=== PATIENT | male | born 1940 | race Hispanic/Latino ===

== ENCOUNTER 2024-01-30 10:54 | Emergency (ER) | payer OTHER ==
[~2024-01-30] VITALS: Ht 154.9 cm; Wt 59.0 kg
[2024-01-30] MEDS ORDERED: LOSARTAN POTASS50 MG PO (11:11)
[2024-01-30] MEDS ORDERED: ALLOPURINOL100 MG PO (11:11)
[2024-01-30] MEDS ORDERED: FINASTERIDE5 MG PO (11:18)
[2024-01-30] MEDS ORDERED: ZYLOPRIM100 MG PO (11:18)
[2024-01-30] MEDS ORDERED: ACETAMINOPHEN500 MG (11:18)
[2024-01-30] MEDS ORDERED: PROBIOTIC1 EAC1 (11:18)
[2024-01-30] MEDS ORDERED: ASPIRIN81 MG PO (11:18)
[2024-01-30] MEDS ORDERED: BACITRACIN ZINC 0.9GM TP ONE (11:51)
[2024-01-30] MEDS: BACITRACIN ZINC 0.9GM TP ONE (11:53)
[2024-01-30 13:35] VITALS: BP 160/74; PULSE 60; RESP 16; TEMP 98.5; O2SAT 98
== END 2024-01-30 13:35 | disposition home or self-care (01) ==
LOC: FSED 10:58
DX: S20.212A Contusion of left front wall of thorax, initial encounter (principal); W01.198A Fall on same level from slipping, tripping and stumbling with subsequent striking against other object, initial encounter; Y93.E1 Activity, personal bathing and showering; Y92.89 Other specified places as the place of occurrence of the external cause; I10 Essential (primary) hypertension
CPT/HCPCS: 71101; 99283